=== PATIENT | female | born 1975 | race Caucasian/White ===

== ENCOUNTER → 2017-07-01 | Day surgery (SDC) | payer OTHER ==
--- NOTE | 2017-06-30 08:54 | MH ---
cc: ROSI ALCARAZ DATE OF ADMISSION 07/01/2017 DATE OF 1975 CHIEF COMPLAINT Chronic tonsillitis HISTORY OF PRESENT ILLNESS This is a 41-year-old female with chronic recurrent tonsillitis, multiple infections and has not responded to medical therapy. It has been going on for sometime. She now wishes to proceed with tonsillectomy. PAST MEDICAL HISTORY SENSITIVITY TO MORPHINE CURRENT MEDICATIONS 1. Ibuprofen 2. Viscous Lidocaine 3. Quasense 4. Tylenol PHYSICAL EXAM This is a well-developed, well-nourished female in no apparent tests distress. HEAD, EYES, EARS, NOSE, AND THROAT: Normocephalic, atraumatic. Extraocular motions intact. External ear canals clear. Lips, oral mucosa and pharynx show lesion. Tonsils 3+ erythema deep tonsil crypts and debris. NECK: The neck shows no masses. CHEST: Clear to auscultation. HEART: Regular rate. ABDOMEN: Soft. EXTREMITIES: No lesion. NEUROLOGIC: Exam is nonfocal. ASSESSMENT This is a 41-year-old female with chronic recurrent tonsillitis, tonsil hypertrophy, halitosis with tonsil debris and deep tonsil crypts. PLAN The plan is for tonsillectomy. The risks and benefits discussed with the patient. The risks include, but not limited to those of anesthesia, bleeding, unfavorable scarring, velopharyngeal insufficiency, dehydration, depression, abscess, voice change, bleeding. The patient states she understands and accepts the risks of the procedure. MD MAJOR Reyes/LARA /8:23 AM /8:35 AM
[~2017-07-01] VITALS: Ht 157.5 cm; Wt 76.4 kg
[~2017-07-01] MED LIST: *ONDANSETRON 4 MG VIAL PERIprocedural Use ONLY ONE; ACETAMINOPHEN 1000 MG/100 ML 100 ML IV ONE; CHLORHEXIDINE GLUCONATE 2 % 1 PACK (2 CLOTHS) TOPICAL PRN; DEXAMETHASONE SOD PHOS 4 MG/ML VIAL IV ONE; DO NOT ADM ANY ANTICOAGULANT DRUGS PRN; FAMOTIDINE 20 MG/2 ML VIAL ONE; LACTATED RINGER'S 1000 ML IV PRN; LIDOCAINE HCL 1% PF 5 ML SYRINGE OTHER ONE; METOPROLOL TARTRATE 25 MG TAB PO PRN; MIDAZOLAM HCL 2 MG/2 ML VIAL ONE; ONDANSETRON HCL 4 MG/2 ML VIAL IV PUSH ONE; POVIDONE IODINE 5% (ANTISEPSIS KIT) 4 APPLICATIONS EACH NARE PRN; PROPOFOL 200 MG/20 ML AMP IV ONE; QUASTAB PO; SODIUM CHLORID 0.9% 500 ML IV PRN; SUCCINYLCHOLINE CHLORIDE 100 MG/5 ML SYRINGE IV PUSH ONE; VITA500T83 PO; ceFAZolin 1,000 MG/NS 100 ML IV SCH
[2017-07-01 07:16] LABS: AUTOMATED NEUTROPHIL # 6.5 TH/MM3 (1.8-7.7); BASOPHIL # 0.1 TH/MM3 (0-0.2); BASOPHIL % 0.8 % (0.0-2.0); EOSINOPHIL # 0.1 TH/MM3 (0-0.4); EOSINOPHIL % 0.6 % (0.0-4.0); HEMATOCRIT 40.6 % (35.0-46.0); LYMPH % 40.4 % (9.0-44.0); MEAN CELL VOLUME 90.7 FL (80.0-100.0); MEAN CORPUSCULAR HEMOGLOBIN 31.2 PG (27.0-34.0); MEAN CORPUSCULAR HGB CONC 34.5 % (32.0-36.0); MONO % 5.9 % (0.0-8.0); MONOCYTE # 0.7 TH/MM3 (0-0.9); NEUT % 52.3 % (16.0-70.0); PLATELET COUNT 311 TH/MM3 (150-450); RED BLOOD COUNT 4.48 MIL/MM3 (4.00-5.30); RED CELL DISTRIBUTION WIDTH 14.4 % (11.6-17.2); WHITE BLOOD COUNT 12.4 TH/MM3 (4.0-11.0)
--- NOTE | 2017-07-01 10:02 | MP ---
cc: ROSI ALCARAZ M.D. DATE OF SURGERY 07/01/2017 INDICATIONS A 41-year-old female with chronic and recurrent tonsillitis with tonsil hypertrophy. She has not responded to medical therapy. The plan is for tonsillectomy. PREOPERATIVE DIAGNOSIS 1. Chronic current tonsillitis. 2. Tonsil hypertrophy. POSTOPERATIVE DIAGNOSIS 1. Chronic current tonsillitis. 2. Tonsil hypertrophy. PROCEDURE Tonsillectomy. SUMMARY The patient was brought to the operating room and placed in a supine position, successfully placed under general anesthesia and prepared in the usual fashion for this procedure. The oral cavity was exposed with a retractor. There was no submucous cleft. The right tonsil was removed with coblation technique from superior to inferior. The left tonsil was removed in a similar fashion. The uvula was noted to be extremely elongated and due to concerns of uvular swelling the inferior portion of the uvula was also amputated as part of the procedure. The patient tolerated the procedure well. Hemostasis was obtained by suction cautery. She was awakened and taken to Recovery in stable condition. MD MAJOR Reyes/NELSY /9:25 AM /9:29 AM
[2017-07-01 10:50] VITALS: BP 143/91; PULSE 80; RESP 18; TEMP 97.6; O2SAT 99
== END | disposition home or self-care (01) ==
LOC: HSDC 06:24
PROVIDERS: ATTEND Specialist
DX: J35.01 Chronic tonsillitis (principal); Z72.0 Tobacco use
CPT/HCPCS: 00170; 42826; 85025; 88304; J0131; J0330; J0690; J1100; J2250; J2405; J3010; J7120